=== PATIENT | female | born 1975 | race Caucasian/White ===

== ENCOUNTER 2016-06-15 09:26 | Day surgery (SDC) | payer BC ==
[~2016-06-15 09:26] MED LIST: ATIVAN0.5 M1 PO; BUSPIRONE HCL10 M2 PO; HAIR, SKIN & N1 EAC1 PO; MULTIVITAMINS1 EAC6 PO; PROBIOTIC1 EAC6 PO
[2016-06-16] MEDS ORDERED: PERCOCET 5-3251 EACH PO (03:20)
== END 2016-06-16 12:25 ==
LOC: SHSB 09:26 → ORW 12:37 → PACU 14:02 → OBGF 15:05
PROC: 0UT94ZZ Resection of Uterus, Percutaneous Endoscopic Approach (ICD-10-PCS; principal; 2016-06-15)
PROC: 0UTC4ZZ Resection of Cervix, Percutaneous Endoscopic Approach (ICD-10-PCS; 2016-06-15)
PROC: 0UB74ZZ Excision of Bilateral Fallopian Tubes, Percutaneous Endoscopic Approach (ICD-10-PCS; 2016-06-15)
PROC: 0TSD4ZZ Reposition Urethra, Percutaneous Endoscopic Approach (ICD-10-PCS; 2016-06-15)
DX: N83.8 Other noninflammatory disorders of ovary, fallopian tube and broad ligament (principal); N39.3 Stress incontinence (female) (male); N36.8 Other specified disorders of urethra; F41.9 Anxiety disorder, unspecified; M21.619 Bunion of unspecified foot; G47.00 Insomnia, unspecified; N92.0 Excessive and frequent menstruation with regular cycle; Z79.899 Other long term (current) drug therapy
CPT/HCPCS: C1771; J0690; J0780; J1170; J2175; J2405; J7030; J7121